=== PATIENT | male | born 2000 | race Caucasian/White ===

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

== ENCOUNTER 2022-02-08 08:57 | Inpatient (IN) | payer MEDICAID, OTHER ==
[2022-02-08 10:18] LABS: Appearance,Urine Clear (Clear); Bilirubin,Urine Negative (Negative); Blood,Urine Negative (Negative); Color,Urine Yellow; Glucose,Urine (UA) Negative (Negative); Ketones,Urine Negative (Negative); Leukocyte Esterase,Urine Negative (Negative); Nitrite,Urine Negative (Negative); Protein,Urine Negative (Negative); Specific Gravity,Urine 1.031 (1.001-1.035); Urobilinogen,Urine <2.0 mg/dL (<2.0)
[2022-02-08 10:31] LABS: Amphetamine Screen,Urine Not Detected (NotDetected); Barbiturate Screen,Urine Not Detected (NotDetected); Benzodiazepines Screen,Urine Not Detected (NotDetected); Cocaine Screen,Urine Not Detected (NotDetected); Methadone Screen, Urine Not Detected (NotDetected); Opiate Screen,Urine Not Detected (NotDetected); Oxycodone Screen, Urine Not Detected (NotDetected); Phencyclidine Screen,Urine Not Detected (NotDetected); Tricyclic Antidepressant,Urine Not Detected (NotDetected); Urn Cannabinoid Scrn Detected (NotDetected)
--- NOTE | 2022-02-08 14:56 | ED ---
Psych HPI - General Chief Complaint: Psychiatric Symptoms Stated Complaint: petition Source: patient Mode of arrival: EMS - History of Present Illness Initial Comments: 21-year-old male brought into the emergency department by police. He is petitioned by his mother. Patient reports that he has had depression his whole life. He used to see a therapist and be on medications up until 2 years ago. Reports that he stopped taking medications as he interacted with his seizure medications. He has not followed with his therapist. Reports that his depression has gotten worse over the past couple of days. Does have suicidal ideations without a plan. Mother was informed of his situation and recommended that he come into the emergency room in for help. Patient admits to marijuana use. Denies alcohol use. No other alleviating, precipitating or modifying factors - Related Data Home Medications Medication Instructions Recorded Confirmed Cholecalciferol [Vitamin D3] 1,000 unit PO DAILY 04/01/18 06/20/20 Cyclobenzaprine [Flexeril] 5 mg PO BID PRN 06/16/20 06/20/20 Fexofenadine HCl [Katie Allergy] 180 mg PO DAILY 06/16/20 06/20/20 Lacosamide [Vimpat] 200 mg PO BID 06/16/20 06/20/20 Lurasidone [Latuda] 40 mg PO HS 06/16/20 06/20/20 Montelukast [Singulair] 10 mg PO DAILY 06/16/20 06/20/20 OXcarbazepine [Trileptal] 600 mg PO BID 06/16/20 06/20/20 Allergies Allergy/AdvReac Type Severity Reaction Status Date / Time milk Allergy Unknown Verified 02/08/22 09:19 Milk Containing Products Allergy Unknown Verified 02/08/22 09:19 [Dairy] levetiracetam [From Keppra] AdvReac AGRESSION Verified 02/08/22 09:19 Review of Systems ROS Statement: Those systems with pertinent positive or pertinent negative responses have been documented in the HPI. ROS Other: All systems not noted in ROS Statement are negative. Past Medical History Past Medical History: Seizure Disorder Additional Past Medical History / Comment(s): asthma as child. brain anneurysm. History of Any Multi-Drug Resistant Organisms: None Reported Past Surgical History: Orthopedic Surgery Additional Past Surgical History / Comment(s): SEASONAL ALLERGIES Past Anesthesia/Blood Transfusion Reactions: No Reported Reaction Past Psychological History: ADD/ADHD, Anxiety, Depression, PTSD Smoking Status: Never smoker Past Alcohol Use History: None Reported Past Drug Use History: Marijuana - Past Family History Mother Family Medical History: No Reported History General Exam Limitations: no limitations Course Vital Signs 02/08/22 09:12 Temperature 98.4 F Pulse Rate 71 Respiratory 18 Rate Blood Pressure 125/79 O2 Sat by Pulse 99 Oximetry Medical Decision Making - Medical Decision Making Patient is evaluated by EPS and will be admitted voluntarily - Lab Data Lab Results 02/08/22 02/08/22 Range/Units 10:02 14:11 Urine Color Yellow Urine Appearance Clear (Clear) Urine pH 6.0 (5.0-8.0) Ur Specific [place] 1.031 (1.001-1.035) Urine Protein Negative (Negative) Urine Glucose (UA) Negative (Negative) Urine Ketones Negative (Negative) Urine Blood Negative (Negative) Urine Nitrite Negative (Negative) Urine Bilirubin Negative (Negative) Urine Urobilinogen <2.0 (<2.0) mg/dL Ur Leukocyte Esterase Negative (Negative) Urine Opiates Screen Not Detected (NotDetected) Ur Oxycodone Screen Not Detected (NotDetected) Urine Methadone Screen Not Detected (NotDetected) Ur Propoxyphene Screen Not Detected (NotDetected) Ur Barbiturates Screen Not Detected (NotDetected) U Tricyclic Antidepress Not Detected (NotDetected) Ur Phencyclidine Scrn Not Detected (NotDetected) Ur Amphetamines Screen Not Detected (NotDetected) U Methamphetamines Scrn Not Detected (NotDetected) U Benzodiazepines Scrn Not Detected (NotDetected) Urine Cocaine Screen Not Detected (NotDetected) U Marijuana (THC) Screen Detected H (NotDetected) Coronavirus (PCR) Not Detected (Not Detectd) Disposition Referrals: Jian Finch MD [Primary Care Provider] - 1-2 days
[2022-02-08] MEDS ORDERED: MAGNESIUM HYDROXIDE 2,400 MG/10 ML CUP PO PRN (19:25)
[2022-02-08] MEDS ORDERED: HALOPERIDOL LACTATE 5 MG/ML 1 ML VIAL IM PRN (19:25)
[2022-02-08] MEDS ORDERED: LORazepam 1 MG TAB PO PRN (19:25)
[2022-02-08] MEDS ORDERED: ACETAMINOPHEN TAB 325 MG TAB PO PRN (19:25)
[2022-02-08] MEDS ORDERED: MAG HYDROX/AL HYDROX/SIMETH 30 ML CUP PO PRN (19:25)
[2022-02-08] MEDS ORDERED: haloperidoL 5 MG TAB PO PRN (19:26)
[2022-02-08] MEDS ORDERED: LORazepam 2 MG/ML INJ IM PRN (19:26)
[2022-02-08] MEDS: OXcarbazepine 300 MG TAB PO SCH (20:36)
[2022-02-08] MEDS: levETIRAcetam 500 MG TAB PO SCH (20:36)
[2022-02-09] MEDS: OXcarbazepine 300 MG TAB PO SCH ×2 (08:38→20:36)
[2022-02-09] MEDS: levETIRAcetam 500 MG TAB PO SCH ×2 (08:38→20:36)
[2022-02-09 10:03] LABS: Basophils # (A) 0.1 k/uL (0-0.2); Basophils % (A) 1 %; Eosinophils # (A) 0.4 k/uL (0-0.7); Eosinophils % (A) 6 %; HCT 53.9 % (39.0-53.0); HGB 17.7 gm/dL (13.0-17.5); Lymphocytes # (A) 1.9 k/uL (1.0-4.8); Lymphocytes % (A) 29 %; MCH 29.3 pg (25.0-35.0); MCHC 32.8 g/dL (31.0-37.0); MCV 89.3 fL (80.0-100.0); Mean Platelet Volume 7.7; Monocytes # (A) 0.4 k/uL (0-1.0); Monocytes % (A) 6 %; Neutrophils # (A) 3.6 k/uL (1.3-7.7); Neutrophils % (A) 56 %; Platelet Count 348 k/uL (150-450); RBC 6.04 m/uL (4.30-5.90); RDW 11.9 % (11.5-15.5); WBC 6.5 k/uL (4.0-11.0)
[2022-02-09 10:10] LABS: ALT 21 U/L (4-49); AST 21 U/L (17-59); African American GFR (CKD) >90 (>60 ml/min/1.73 sqM); Albumin 5.2 g/dL (3.5-5.0); Alkaline Phosphatase 98 U/L (38-126); Anion Gap 16 mmol/L; Blood Urea Nitrogen 19 mg/dL (9-20); Calcium 10.7 mg/dL (8.4-10.2); Carbon Dioxide 23 mmol/L (22-30); Chloride 100 mmol/L (98-107); Glucose 96 mg/dL (74-99); Non-African American GFR(CKD) >90 (>60 ml/min/1.73 sqM); Potassium 4.5 mmol/L (3.5-5.1); Sodium 139 mmol/L (137-145); Total Bilirubin 0.7 mg/dL (0.2-1.3); Total Protein 8.6 g/dL (6.3-8.2)
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
[2022-02-09] MEDS: LORATADINE 10 MG TAB PO SCH (13:58)
[2022-02-09] MEDS: DULoxetine HCL 30 MG CAPSULE.DR PO SCH (13:58)
[2022-02-09 18:26] LABS: Chol/HDL Ratio 4.28 Ratio; LDL Cholesterol,Calculated 119.6 mg/dL (0.0-131.0)
[2022-02-09] MEDS: QUEtiapine 50 MG TAB PO SCH (20:36)
[2022-02-10] MEDS: OXcarbazepine 300 MG TAB PO SCH ×2 (08:29→20:55)
[2022-02-10] MEDS: levETIRAcetam 500 MG TAB PO SCH ×2 (08:29→20:55)
[2022-02-10] MEDS: DULoxetine HCL 30 MG CAPSULE.DR PO SCH (08:29)
[2022-02-10] MEDS: LORATADINE 10 MG TAB PO SCH (08:29)
--- NOTE | 2022-02-10 11:40 | P.PN ---
Progress Note - Text Progress Note Date: 02/10/22 Interval History: Patient was seen taking part in group today and was directable and agreeable to speak with bond writer in the office. Patient appears to have an improvement in his affect. He states that he was able to see "very good" last night and states that he slept mainly throughout the night. He states that he is trying to go to groups and work on his coping skills and also being more open. He claims that he spoke with his mother yesterday over the phone he states that has been going well. He states that he is going to shower today and has an improving appetite. She claims that he is still working on his depression and his anxiety at this time. At this time patient denies any suicidal or homical ideations, intent or plan. Patient denies any auditory, visual hallucinations and denies any paranoia or delusions. Patient denies any side effects from the medications and has been compliant with meds. Mental Status Exam: General Appearance: Patient appears to be short in stature, long hair, stated age is alert, directable, and attempts to cooperate. Patient appears to have brian r hygiene and grooming. Behavior: Patient is seated without any agitated behavior. Fairly cooperative Speech: Patient's speech is fluent and nonpressured. Mood/Affect: Patient reports their mood is improving, affect is congruent and constricted. Suicidality/Homicidality: Patient denies having any homicidal ideation intent or plan. Denies any suicidal ideations intent or plan Perceptions: Patient denies any visual hallucinations and denies any auditory hallucinations Though content/process: There is no evidence of any delusional thought content and thought process is linear and goal-directed. Rambles at times, improving mildly Memory and concentration: AOX3, grossly intact for the purposes of this session Judgment and insight: Improving mildly IMPRESSIONS: Major depressive disorder without psychotic features Cannabis use disorder Plan: -Patient continues to meet criteria for inpatient psychiatric admission for symptom stabilization and safety. Patient has signed adult voluntary form and medication consent and was placed in patient's chart. -Medications: Cymbalta 30 mg daily for mood/anxiety, Seroquel 50 mg daily at bedtime for mood stabilization/mood adjunct. -When necessary Ativan and Haldol for agitation/aggression. -NRT - not needed as patient does not smoke -SW on board for discharge planning. Encouraged the patient to participate in milieu. likely discharge back home tomorrow.
[2022-02-10] MEDS: QUEtiapine 50 MG TAB PO SCH (20:55)
[2022-02-11 07:14] VITALS: BP 103/61; PULSE 52; RESP 16; TEMP 98.1
[2022-02-11] MEDS: LORATADINE 10 MG TAB PO SCH (09:16)
[2022-02-11] MEDS: DULoxetine HCL 30 MG CAPSULE.DR PO SCH (09:16)
[2022-02-11] MEDS: levETIRAcetam 500 MG TAB PO SCH (09:16)
[2022-02-11] MEDS: OXcarbazepine 300 MG TAB PO SCH (09:16)
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
== END 2022-02-11 12:48 | disposition home or self-care (01) | DRG 881 ==
LOC: EC 08:57 → 3MHU 19:21
PROVIDERS: ADMIT Psychiatry & Neurology Psychiatry; ATTEND Psychiatry & Neurology Psychiatry
DX: F32.A Depression, unspecified (principal); R45.851 Suicidal ideations; F12.10 Cannabis abuse, uncomplicated; Z20.822 Contact with and (suspected) exposure to COVID-19; F90.9 Attention-deficit hyperactivity disorder, unspecified type; J30.2 Other seasonal allergic rhinitis; F43.10 Post-traumatic stress disorder, unspecified; G40.909 Epilepsy, unspecified, not intractable, without status epilepticus; G47.00 Insomnia, unspecified; J45.909 Unspecified asthma, uncomplicated; Z79.899 Other long term (current) drug therapy; Z91.011 Allergy to milk products; Z88.8 Allergy status to other drugs, medicaments and biological substances; Z71.51 Drug abuse counseling and surveillance of drug abuser
CPT/HCPCS: 80053; 80061; 80306; 81003; 82075; 83036; 84443; 85025; 87635; 99284

== ENCOUNTER 2024-06-23 19:48 | Emergency (ER) | payer OTHER ==
[2024-06-23 20:19] VITALS: TEMP 97.8
--- NOTE | 2024-06-23 21:40 | ED ---
Psych HPI - General Chief Complaint: Psychiatric Symptoms Stated Complaint: Petition Time Seen by Provider: 06/23/24 21:28 Source: patient, police, RN notes reviewed, old records reviewed Mode of arrival: ambulatory Limitations: no limitations - History of Present Illness Initial Comments: This is a 23-year-old male to ER for evaluation, patient presents for psychiatric evaluation today history of seizures currently having suicidal thoughts no drugs or alcohol MD Complaint: suicidal ideation, feels depressed -: days(s) Associated Psychiatric Symptoms: depression, suicidal ideation History of same: Yes Quality: constant Improves With: none Worsens With: none Context: significant life stressor Associated Symptoms: denies other symptoms Treatments Prior to Arrival: placed on mental health hold If Self Harm: admits thoughts of self harm - Related Data Home Medications Medication Instructions Recorded Confirmed OXcarbazepine [Trileptal] 600 mg PO BID 06/16/20 02/08/22 Cetirizine HCl [Zyrtec] 10 mg PO DAILY 02/08/22 02/08/22 levETIRAcetam [Keppra] 500 mg PO BID 02/08/22 02/08/22 Previous Rx's Medication Instructions Recorded DULoxetine HCL [Cymbalta] 30 mg PO DAILY 30 Days cap 02/11/22 QUEtiapine [SEROquel] 50 mg PO HS 30 Days tab 02/11/22 Allergies Allergy/AdvReac Type Severity Reaction Status Date / Time milk Allergy Unknown Verified 02/08/22 09:19 Milk Containing Products Allergy Unknown Verified 02/08/22 09:19 (Dairy) [Dairy] levetiracetam [From Keppra] AdvReac AGRESSION Verified 02/08/22 09:19 Review of Systems ROS Statement: Those systems with pertinent positive or pertinent negative responses have been documented in the HPI. ROS Other: All systems not noted in ROS Statement are negative. Past Medical History Past Medical History: Seizure Disorder Additional Past Medical History / Comment(s): asthma as child. brain anneurysm. History of Any Multi-Drug Resistant Organisms: None Reported Past Surgical History: Orthopedic Surgery Additional Past Surgical History / Comment(s): SEASONAL ALLERGIES Past Anesthesia/Blood Transfusion Reactions: No Reported Reaction Past Psychological History: ADD/ADHD, Anxiety, Depression, PTSD Smoking Status: Never smoker Past Alcohol Use History: None Reported Past Drug Use History: Marijuana - Past Family History Mother Family Medical History: No Reported History General Exam Limitations: no limitations General appearance: alert, in no apparent distress Head exam: Present: atraumatic, normocephalic, normal inspection Eye exam: Present: normal appearance, PERRL, EOMI. Absent: scleral icterus, conjunctival injection, periorbital swelling ENT exam: Present: normal exam, mucous membranes moist Neck exam: Present: normal inspection. Absent: tenderness, meningismus, lymphadenopathy Respiratory exam: Present: normal lung sounds bilaterally. Absent: respiratory distress, wheezes, rales, rhonchi, stridor Cardiovascular Exam: Present: regular rate, normal rhythm, normal heart sounds. Absent: systolic murmur, diastolic murmur, rubs, gallop, clicks GI/Abdominal exam: Present: soft, normal bowel sounds. Absent: distended, tenderness, guarding, rebound, rigid Extremities exam: Present: normal inspection, full ROM, normal capillary refill. Absent: tenderness, pedal edema, joint swelling, calf tenderness Back exam: Present: normal inspection Neurological exam: Present: alert, oriented X3, CN II-XII intact Psychiatric exam: Present: normal affect, normal mood Skin exam: Present: warm, dry, intact, normal color. Absent: rash Course Vital Signs 06/23/24 20:15 Temperature 97.8 F Pulse Rate 80 Respiratory 20 Rate Blood Pressure 121/88 O2 Sat by Pulse 99 Oximetry - Reevaluation(s) Reevaluation #1: 06/23/24 21:43 Medical records reviewed Reevaluation #2: 06/23/24 21:43 Patient is medically cleared for psychiatric evaluation Reevaluation #3: Was pt. sent in by a medical professional or institution (, PA, VACCINES SOLUTIONS SPECIALIST, urgent care, hospital, or alf...) When possible be specific @ -no Did you speak to anyone other than the patient for history (EMS, parent, family, police, friend...)? What history was obtained from this source @ -no Did you review nursing and triage notes (agree or disagree)? Why? @ -agree Are old charts reviewed (outside hosp., previous admission, EMS record, old EKG, old radiological studies, urgent care reports/EKG's, alf records)? Report findings @ -yes Differential Diagnosis (chest pain, altered mental status, abdominal pain women, abdominal pain men, vaginal bleeding, weakness, fever, dyspnea, syncope, headache, dizziness, GI bleed, back pain, seizure, CVA, palpatations, mental health, musculoskeletal)? @ -prior EKG interpreted by me (3pts min.). @ -yes X-rays interpreted by me (1pt min.). @ -yes negative for acute disease CT interpreted by me (1pt min.). @ -no U/S interpreted by me (1pt. min.). @ -no What testing was considered but not performed or refused? (CT, X-rays, U/S, labs)? Why? @ -none What meds were considered but not given or refused? Why? @ -none Did you discuss the management of the patient with other professionals (professionals i.e. , PA, VACCINES SOLUTIONS SPECIALIST, lab, RT, psych nurse, social sciences professor, wellness program coordinator, teacher, chief resource officer, mental health case manager)? Give summary @ -no Was smoking cessation discussed for >3mins.? @ -no Was critical care preformed (if so, how long)? @ -no Were there social determinants of health that impacted care today? How? (Homelessness, low income, unemployed, alcoholism, drug addiction, transportation, low edu. Level, literacy, decrease access to med. care, long term, rehab)? @ -none Was there de-escalation of care discussed even if they declined (Discuss DNR or withdrawal of care, Hospice)? DNR status @ -no What co-morbidities impacted this encounter? (DM, HTN, Smoking, COPD, CAD, Cancer, CVA, ARF, Chemo, Hep., AIDS, mental health diagnosis, sleep apnea, morbid obesity)? @ -none Was patient admitted / discharged? Hospital course, mention meds given and route, prescriptions, significant lab abnormalities, going to OR and other pertinent info. @ - Undiagnosed new problem with uncertain prognosis? @ -no Drug Therapy requiring intensive monitoring for toxicity (Heparin, Nitro, Insulin, Cardizem)? @ -no Were any procedures done? @ -no Diagnosis/symptom? @ - Acute, or Chronic, or Acute on Chronic? @ -Acute Uncomplicated (without systemic symptoms) or Complicated (systemic symptoms)? @ -Complicated Side effects of treatment? @ -no Exacerbation, Progression, or Severe Exacerbation? @ -exacerbation Poses a threat to life or bodily function? How? (Chest pain, USA, MA, pneumonia, PE, COPD, DKA, ARF, appy, cholecystitis, CVA, Diverticulitis, Homicidal, Suicidal, threat to staff... and all critical care pts) @ -yes Reevaluation #4: Differential Mental Health Depression, anxiety, bipolar, psychosis, schizophrenia, borderline personality, situational depression, adjustment disorder, behavioral disorder, brain tumor, malingering, substance abuse, encephalopathy, medication reaction, dementia, hypothyroidism, degenerative neurologic disorder, lupus.... This is not meant to be all-inclusive list Medical Decision Making - Medical Decision Making 23 male seen evaluate psychiatry, patient is okay for discharge home - Lab Data Lab Results 06/23/24 Range/Units 23:38 Influenza Type A (PCR) Not Detected (Not Detectd) Influenza Type B (PCR) Not Detected (Not Detectd) RSV (PCR) Not Detected (Not Detectd) SARS-CoV-2 (PCR) Not Detected (Not Detectd) Disposition Clinical Impression: Acute anxiety, Adjustment reaction of adult life, Major depressive disorder without psychotic features, Depression, Cannabis use disorder Disposition: HOME SELF-CARE Condition: Fair Is patient prescribed a controlled substance at d/c from ED?: No Referrals: Jian Finch MD [Primary Care Provider] - 1-2 days
[2024-06-23] MEDS: levETIRAcetam 500 MG TAB PO STA (22:38)
[2024-06-24 02:01] VITALS: BP 137/97; PULSE 86; RESP 18
== END 2024-06-24 02:06 | disposition home or self-care (01) ==
LOC: EC 19:48
DX: F43.23 Adjustment disorder with mixed anxiety and depressed mood (principal); F32.9 Major depressive disorder, single episode, unspecified; F12.90 Cannabis use, unspecified, uncomplicated; Z91.011 Allergy to milk products; Z88.8 Allergy status to other drugs, medicaments and biological substances; Z11.52 Encounter for screening for COVID-19
CPT/HCPCS: 82075; 87636; 99285